=== PATIENT | female | born 1960 | race Caucasian/White ===

== ENCOUNTER 2022-09-05 11:27 | Emergency (ER) | payer MEDICAID ==
[~2022-09-05] VITALS: Ht 165.1 cm; Wt 75.0 kg
[2022-09-05 11:50] VITALS: BP 131/74
[2022-09-05] MEDS ORDERED: DEXT118S5 PO (13:32)
[2022-09-05] MEDS ORDERED: BENZ100C86 MT (13:32)
== END 2022-09-05 14:04 | disposition home or self-care (01) ==
LOC: ER 11:27
DX: J06.9 Acute upper respiratory infection, unspecified (principal); M81.0 Age-related osteoporosis without current pathological fracture
CPT/HCPCS: 99283

== ENCOUNTER 2022-10-07 18:12 | Emergency (ER) | payer MEDICAID, OTHER ==
[~2022-10-07] VITALS: Ht 152.4 cm; Wt 59.0 kg
[~2022-10-07 18:12] MED LIST: BENZ100C86 MT; DEXT118S5 PO
[2022-10-07 18:34] VITALS: BP 158/62
== END 2022-10-07 20:52 | disposition left against medical advice (07) ==
LOC: ER 18:12
DX: Z53.21 Procedure and treatment not carried out due to patient leaving prior to being seen by health care provider (principal)